=== PATIENT | female | born 2005 | race Caucasian/White ===

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

== ENCOUNTER 2024-02-27 01:13 | Emergency (ER) | payer MEDICAID, SELFPAY ==
[2024-02-27 01:16] VITALS: BP 113/76; PULSE 88; RESP 16; TEMP 36.4; O2SAT 99
--- NOTE | 2024-02-27 01:41 | W.ED.GENAD ---
Discharge Plan Disposition Patient Disposition: Home Condition: Improving Discharge Details Clinical Impression: Urticaria Primary Care Provider: Juinor Walls ED Provider: Martin Salinas Home Meds and New Rx's Prescriptions: New diphenhydramine HCl 50 mg capsule 50 mg PO Q6H PRN (Reason: itching) Qty: 20 0RF prednisone 10 mg tablet 10 mg PO DAILY Qty: 3 0RF No Action cholecalciferol (vitamin D3) 50 mcg (2,000 unit) capsule 2,000 unit PO DAILY Patient Comments: TAKE ONE CAPSULE BY MOUTH EVERY DAY Discharge Instructions Instructions: Urticaria (ED) Additional Instructions: Take 1 Benadryl capsule every 6 hours, as needed for symptoms of itching or ongoing rash. Take 1 prednisone tablet daily for the next 3 days. If symptoms are lasting longer than 3 days, contact and follow-up with regular primary care doctor for recheck and further management. You can always return to the ER for any new concerns or sudden changes in your health which you feel require emergency medical attention. Discharge Data Discharge Physician: Martin Salinas [facility] General Date/Time Provider Initiated Documentation: 02/27/24 01:16. HPI Narrative: The patient is a 18-year-old female, with a noncontributory past medical history, who presents to the emergency department this evening with complaints of a rash that developed on her back chest neck and upper extremities approximately an hour after she went to bed tonight. The patient reports that the rash is red, raised, and itchy. She did try on a T-shirt that was given to her by a friend earlier in the evening without washing it. The patient denies any new skin care products, cosmetics, detergents, foods, or recent illnesses. Related Data Home Medications Medication Instructions Recorded Confirmed cholecalciferol (vitamin D3) 50 2,000 unit PO DAILY 02/27/24 02/27/24 mcg (2,000 unit) capsule diphenhydramine HCl 50 mg capsule 50 mg PO Q6H PRN itching #20 caps 02/27/24 prednisone 10 mg tablet 10 mg PO DAILY #3 tabs 02/27/24 Previous Rx's Medication Instructions Recorded diphenhydramine HCl 50 mg capsule 50 mg PO Q6H PRN itching #20 caps 02/27/24 prednisone 10 mg tablet 10 mg PO DAILY #3 tabs 02/27/24 Allergies Allergy/AdvReac Type Severity Reaction Status Date / Time gluten Allergy Intermediate rash Verified 02/27/24 01:22 lactose Allergy Intermediate rash Verified 02/27/24 01:22 General Stated Complaint: RashLesion PATRICIA: 4 Exam Const General: cooperative, healthy appearing, comfortable and no acute distress Resp Effort & Inspection: normal respiratory effort and able to speak in complete sentences Auscultation: clear to auscultation bilaterally Skin Rashes: rashes noted (Urticaria on the neck, anterior chest, upper back, and bilateral upper extr) Course Vital Signs Vital signs: Vital Signs Temperature 36.4 C L 02/27/24 01:16 Pulse 88 02/27/24 01:16 Respiratory Rate 16 02/27/24 01:16 Blood Pressure 113/76 02/27/24 01:16 Pulse Oximetry 99 02/27/24 01:16 Temperature 36.4 C L 02/27/24 01:16 Temperature Source Temporal Artery Scan 02/27/24 01:16 Pulse 88 02/27/24 01:16 Respiratory Rate 16 02/27/24 01:16 Respiratory Effort Normal, Non-Labored 02/27/24 01:24 Blood Pressure 113/76 02/27/24 01:16 Blood Pressure Position Sitting 02/27/24 01:16 Pulse Oximetry 99 02/27/24 01:16 Oxygen Delivery Method Room Air 02/27/24 01:16 Oxygen Flow Rate 0 02/27/24 01:16 Medical Decision Making The patient was seen and examined. This appears to be a case of simple hives. The patient will be given oral Benadryl and oral prednisone. I will prescribe similar medications for use at home over the course of the next 3 days if needed for ongoing rash. Primary care follow-up recommended if symptoms are ongoing longer than 3 days. Quality:SDOH Health Related Social Needs: No Data to Display PFSH All Active Problems (Updated 02/27/24 @ 01:48 by Martin Salinas MD) Urticaria (Acute) Social History Smoking/Tobacco Use Status: Never Smoking risk assessment performed?: Yes Alcohol Intake: never Substance use type: does not use
[2024-02-27] MEDS: diphenhydrAMINE 25 MG CAP 50 MG PO (01:47)
[2024-02-27] MEDS: predniSONE 10 MG TAB PO (01:47)
[2024-02-27 01:52] VITALS: BP 113/68; PULSE 88; RESP 16; TEMP 36.9; O2SAT 99
== END 2024-02-27 02:48 | disposition home or self-care (01) ==
PROVIDERS: Emergency Provider Emergency Medicine Emergency Medical Services; PCP Student in an Organized Health Care Education/Training Program
DX: L50.9 Urticaria, unspecified (principal)
CPT/HCPCS: 99283; J7512